=== PATIENT | male | born 1985 | race Caucasian/White ===

== ENCOUNTER 2016-09-21 20:10 | Emergency (ER) | payer OTHER ==
[2016-09-21 20:16] VITALS: BP 104/62; PULSE 64; TEMP 98.1; BMI 21.2
--- NOTE | 2016-09-21 20:19 | PDOC ---
History of Present Illness - General Chief Complaint: Foreign Body (FB) Stated Complaint: INSECT IN LEG Time Seen by Provider: 09/21/16 20:16 History Source: Patient Exam Limitations: No Limitations - History of Present Illness Initial Comments: CHIEF COMPLAINT: 30 y/o afebrile male with tick bite to left upper thigh. HISTORY OF PRESENT ILLNESS: The patient states he was at the park this evening and when he got home and went to take a shower he noticed the tick on his upper left thigh. He states it was not there yesterday. He did not attempt to remove it himself. Vital signs on arrival are within normal limits. REVIEW OF SYSTEMS: GENERAL/CONSTITUTIONAL: No fever/chills. No weakness. No weight change. MUSCULOSKELETAL: No joint or muscle swelling or pain. No neck or back pain. SKIN: +tick in upper left thigh. NEUROLOGIC: No headache, vertigo, loss of consciousness, or loss of sensation. PHYSICAL EXAM: VITAL_SIGNS: within normal limits GENERAL_APPEARANCE: alert, cooperative, no obvious discomfort. MENTAL_STATUS: speech clear, oriented X 3, responds appropriately to questions. NEURO: motor intact and sensory intact in injured extremity. EXTREMITIES: Very small tick superficially attached to left upper thigh. The tick is not engorged. No surrounding erythema to the site. No bullseye rash. SKIN: warm, dry, good color. Past History - Past Medical History Allergies/Adverse Reactions: Allergies Allergy/AdvReac Type Severity Reaction Status Date / Time No Known Allergies Allergy Verified 09/21/16 20:13 Home Medications: Ambulatory Orders Doxycycline Hyclate [Vibramycin -] 100 mg PO BID #42 cap 09/21/16 - Psycho/Social/Smoking Cessation Hx Suicidal Ideation: No Smoking History: Current every day smoker Number of Cigarettes Smoked Daily: 7 Information on smoking cessation initiated: No *Physical Exam - Vital Signs Last Vital Signs Temp Pulse Resp BP Pulse Ox 98.1 F 64 18 104/62 100 09/21/16 20:13 09/21/16 20:13 09/21/16 20:13 09/21/16 20:13 09/21/16 20:13 Medical Decision Making - Medical Decision Making A/P: 30 y/o male with tick to left upper thigh. Tick removed in entirety (including the head) easily with tweezers. The tick was not engorged. Area then cleaned with hydrogen peroxide. The patient will be sent rx for doxycycline. He was instructed to take for all 21 days and return to the ER with any worsening or concerning symptoms. The patient verbalizes understanding of all instructions, has no further questions and is awaiting discharge. *DC/Admit/Observation/Transfer Diagnosis at time of Disposition: Tick bite of left thigh Qualifiers: Encounter type: initial encounter Qualified Code(s): S70.362A - Insect bite ( nonvenomous), left thigh, initial encounter - Discharge Dispostion Disposition: HOME Condition at time of disposition: Improved - Prescriptions Prescriptions: Doxycycline Hyclate [Vibramycin -] 100 mg PO BID #42 cap - Referrals Referrals: STAFF,NOT ON [Primary Care Provider] - - Patient Instructions Printed Discharge Instructions: How to Remove a Tick, DI for Insect Bites and Stings Additional Instructions: Discharge Instructions: -A prescription was sent to [facility]; please take as prescribed for 21 days -REturn to the ER with any worsening or concerning symptoms
== END 2016-09-21 20:55 | disposition home or self-care (01) ==
LOC: JERFT 20:10
DX: S70.362A Insect bite (nonvenomous), left thigh, initial encounter (principal); W57.XXXA Bitten or stung by nonvenomous insect and other nonvenomous arthropods, initial encounter; Y93.89 Activity, other specified; Y92.830 Public park as the place of occurrence of the external cause; Y99.8 Other external cause status
CPT/HCPCS: 99281-25

== ENCOUNTER 2020-07-27 18:14 | Emergency (ER) | payer OTHER ==
[2020-07-27 18:34] VITALS: BP 108/73; PULSE 67; TEMP 98.6; BMI 24.3
[2020-07-27] MEDS ORDERED: IBUPROFEN 600 MG TABLET (FP) PO ONE ×2 (19:09→19:12)
== END 2020-07-27 19:21 | disposition home or self-care (01) ==
LOC: JERFT 18:14
DX: M54.6 Pain in thoracic spine (principal)
CPT/HCPCS: 99284-25